=== PATIENT | female | born 1940 | race Caucasian/White ===

== ENCOUNTER 2019-02-12 10:40 | Inpatient (IN) ==
--- NOTE | 2019-02-12 11:37 | Diag Imaging Result Doc PS360 ---
EXAM: TRAUMA SHOULDER LEFT HISTORY: fall/injury TECHNIQUE: Four views COMPARISON: None. FINDINGS: No fracture. No dislocation. Arthritis at the acromioclavicular joint. No separation. IMPRESSION: No acute bony injury. Electronically signed by Max Avery 02/12/2019 11:35 AM
--- NOTE | 2019-02-12 11:37 | Diag Imaging Result Doc PS360 ---
EXAM: XRAY PELVIS W/HIP 2-3VW LT HISTORY: fall/injury TECHNIQUE: Three views COMPARISON: None. FINDINGS: There is a subcapital left femoral neck fracture. Mild compaction and angulation. The femoral head remains in the acetabulum. IMPRESSION: Left femoral neck fracture. Electronically signed by Max Avery 02/12/2019 11:34 AM
[2019-02-12] MEDS ORDERED: NS 1,000 ML IV ONE (12:39)
--- NOTE | 2019-02-12 13:02 | Diag Imaging Result Doc PS360 ---
EXAM: CHEST-PORTABLE HISTORY: fall with hip fracture TECHNIQUE: Single view COMPARISON: None. FINDINGS: The lungs are well expanded. No contusion. No pneumothorax. No pleural effusions or fractures identified. IMPRESSION: No injury Electronically signed by Max Avery 02/12/2019 1:00 PM
[2019-02-12 13:25] LABS: BASO# 0.02 X1000 (0.0-0.2); BASO% 0.2 % (0.0-0.8); EOS# 0.03 X1000 (0.0-0.7); EOS% 0.3 % (0.0-10.0); HEMOGLOBIN 13.7 g/dL (12.0-16.0); IMM GRAN# 0.02 X1000 (0.0-0.04); IMM GRAN% 0.2 % (0.0-0.5); LYMPH# 1.52 X1000 (1.2-3.4); LYMPH% 15.4 % (20.5-51.1); MCH 27.9 PG (27-31); MCHC 32.6 g/dL (33-37); MCV 85.5 FL (81-99); MONO# 0.87 X1000 (0.11-0.59); MONO% 8.8 % (1.7-9.3); MPV 9.3 FL (7.4-10.4); NEUT# 7.39 X1000 (1.4-6.5); NEUT% 75.1 % (42.2-75.2); PLT 177 X1000 (130-400); RBC 4.91 XMIL (4.2-5.4); RDW 13.9 % (11.5-14.5); WBC 9.85 X1000 (4.8-10.8)
[2019-02-12 13:28] LABS: INR 1.11; PROTIME 14.5 Seconds (11.0-16.0)
[2019-02-12 13:29] LABS: PTT 28.1 Seconds (22.3-41.8)
[2019-02-12 13:40] LABS: AGAP 15; ALB/GLOB RATIO 1.8; ALBUMIN 4.4 g/dL (3.5-5.0); ALKALINE PHOSPHATASE 60 U/L (32-104); BUN 15 mg/dL (8-22); CALCIUM 9.6 mg/dL (8.8-10.2); CHLORIDE 101 mmol/L (98-107); COSMO 282; CREATININE 0.6 mg/dL (0.5-0.9); ESTIMATED GFR > 60; GLUCOSE 93 mg/dL (70-104); GOT 20 U/L (10-30); GPT 15 U/L (10-36); POTASSIUM 3.9 mmol/L (3.5-5.1); SODIUM 141 mmol/L (136-145); TCO2 25 mmol/L (25-35); TOTAL PROTEIN 6.8 g/dL (6.3-8.3)
[2019-02-12 14:18] LABS: URINE SOURCE CATH
[2019-02-12 14:20] LABS: BILIRUBIN URINE NEGATIVE (NEGATIVE); BLOOD URINE NEGATIVE (NEGATIVE); COLOR YELLOW; GLUCOSE URINE NEGATIVE (NEGATIVE); KETONE URINE 20 mg/dL (NEGATIVE); LEUKOCYTES URINE NEGATIVE (NEGATIVE); NITRITE URINE NEGATIVE (NEGATIVE); PH URINE 5.5; PROTEIN URINE NEGATIVE (NEGATIVE); SP GRAVITY URINE 1.009; TURBIDITY URINE CLEAR (CLEAR); UR EPITHELIAL CELLS <10 /HPF (<10); URINE BACTERIA NEGATIVE /HPF; URINE RBC <10 /HPF (<10); URINE WBC <10 /HPF (<10); UROBILINOGEN URINE NORMAL (NORMAL)
--- NOTE | 2019-02-12 14:24 | Diag Imaging Result Doc PS360 ---
EXAM: CT HEAD/C-SPINE W/O CONTRAST INDICATION: head injury/pain TECHNIQUE: This exam was performed using automated exposure control, adjustment of mA or kV according to patient size, and/or use of iterative reconstruction technique. COMPARISON: None. FINDINGS: Head: There is no definite acute infarct given the limited sensitivity of CT versus MRI. There is no discrete intracranial mass, mass effect, or intracranial hemorrhage. The surrounding soft tissues are essentially unremarkable. The calvaria is intact. C-spine: There is mild degenerative disc disease at several levels with tiny marginal osteophytes. The central canal appears to be largely patent. Otherwise, there is no discrete fracture, subluxation, or intrinsic osseous lesion. The surrounding soft tissues are essentially unremarkable. IMPRESSION: 1.No evidence of acute intracranial pathology. 2.No evidence of fracture or other definite acute C-spine injury. Electronically signed by Ben Jeter 02/12/2019 2:21 PM
--- NOTE | 2019-02-12 15:01 | PROVIDER DOCUMENTATION ---
This chart was entered by Molly Self Scribe, acting as scribe for Paulino Estrada MD. HPI-Musculoskeletal Pain/Inj - GENERAL Chief Complaint: Hip Injury Stated Complaint: FALL/HIP INJURY Time Seen by Provider: 02/12/19 11:14 Source: patient - HX OF PRESENT ILLNESS-MUSKULOSKELTAL Nature of Presenting Problem: Patient is a 78 year old female who presents with left hip and left shoulder pain. States she fell yesterday after tripping in her kitchen. Denies head injury and LOC. Reports being seen by a THERMAL SPRAY OPERATOR and received xrays and an MRI. States she was informed she had a femur fracture. Quality of Pain: reports: aching Severity in ED: mild Onset/Duration: 24 hours ago Timing: still present Any recent injury?: Yes (fall) Locality of Occurance: Home Similar Symptoms Previously?: Yes Recently seen or treated by another doctor?: Yes - FALL INJURY Location of Pain/Injury: reports: upper extremity (left shoulder), other (left hip) Pain Radiation: reports: no radiation Reason for Fall: reports: tripped Loss of Consciousness: no loss of consciousness - HIP/PELVIS PAIN/INJURY Hip Pain Location: reports: hip (L) Pain Radiation: reports: no radiation Context / Method of Injury: reports: fall - LOWER EXTREMITY PAIN/INJURY Lower Extremities Pain: hip: left Context / Method of Injury: reports: fell - UPPER EXTREMITY PAIN/INJURY Extremities Pain Location: shoulder: left Context / Method of Injury: reports: fell Review of Systems - Adult - REVIEW OF SYSTEMS - ADULT Constitutional: reports: no symptoms reported Eyes: reports: no symptoms reported Ears, Nose, Mouth & Throat: reports: no symptoms reported Cardiovascular: reports: no symptoms reported Respiratory: reports: no symptoms reported Gastrointestinal: reports: no symptoms reported Genitourinary: reports: no symptoms reported Musculoskeletal: reports: see HPI, other (left hip and left shoulder pain). denies: back pain, neck pain Integumentary: reports: no symptoms reported Neurological: reports: no symptoms reported Psychiatric: reports: no symptoms reported Endocrine: reports: no symptoms reported Hematologic/Lymphatic: reports: no symptoms reported Allergic/Immunologic: reports: no symptoms reported All Other Systems: Reviewed and Negative Past History - Adult - PAST MEDICAL HISTORY-ADULT Review of Records: reports: Old Records Reviewed, Nursing Assessment Review, Medications Reviewed, Social history reviewed & non-contributory. Major Childhood Illnesses: reports: denies history Cardiovascular: reports: denies history Respiratory: reports: denies history Gastrointestinal: reports: denies history Obstetrical/Gynecological: reports: denies history Genitourinary: reports: denies history Musculoskeletal: reports: denies history Neurological: reports: denies history Endocrine/Immune: reports: denies history Other Conditions: reports: denies history - PRIOR SURGERIES/PROCEDURES Surgical/Procedure History: reports: reviewed, not pertinent - IMMUNIZATION STATUS Childhood Immunizations: See Nurse Assessment Flu Vaccine: See Nurse Assessment - FAMILY HISTORY Family History: reviewed, not pertinent - SOCIAL HISTORY Smoking: denies Substance Use: denies Living Situation: family Physical Exam-Injury Related - Physical Exam-Injury Related Initial Vital Signs Reviewed: Yes General Appearance: alert, no apparent distress. negative: lethargic Head, Ears, Nose, Mouth & Throat: normocephalic/atraumatic, moist mucous membranes. negative: angioedema Neck: non-tender, full range of motion, normal inspection. negative: C-spine tenderness Respiratory: chest non-tender, lungs clear, normal breath sounds. negative: rhonchi, wheezing Cardiovascular: regular rate, rhythm. negative: tachycardia, systolic murmur Abdominal Exam: normal bowel sounds, non tender, soft. negative: rigid Extremity: tenderness (left shoulder.), other (decrease ROM to left hip.). negative: pedal edema Integumentary: normal color, warm/dry. negative: abrasion, laceration Neurologic: grossly normal. negative: aphasia, facial droop Psych/Mental Status: normal mood/affect, oriented x 3. negative: anxious Progress - PLAN OF CARE/RESULTS Progress/Plan/Lab Results: Vital Signs - 8 hr 02/12/19 10:45 Temperature 98.4 F Pulse Rate 66 Respiratory Rate 18 Blood Pressure 136/69 O2 Sat by Pulse Oximetry 98 Laboratory Results - last 24 hr 02/12/19 02/12/19 02/12/19 13:07 13:07 13:07 WBC 9.85 RBC 4.91 Hgb 13.7 Hct 42.0 MCV 85.5 MCH 27.9 MCHC 32.6 L RDW Std Deviation 13.9 Plt Count 177 MPV 9.3 Immature Gran % (Auto) 0.2 Neut % (Auto) 75.1 Lymph % (Auto) 15.4 L Noble % (Auto) 8.8 Eos % (Auto) 0.3 Baso % (Auto) 0.2 Immature Gran # (Auto) 0.02 Neut # (Auto) 7.39 H Lymph # (Auto) 1.52 Noble # (Auto) 0.87 H Eos # (Auto) 0.03 Baso # (Auto) 0.02 PT INR PTT (Actin FS) Sodium 141 Potassium 3.9 Chloride 101 Carbon Dioxide 25 Anion Gap 15 BUN 15 Creatinine 0.6 Estimated GFR/1.73 m2 > 60 BUN/Creatinine Ratio 25 Glucose 93 Calculated Osmolality 282 Calcium 9.6 Total Bilirubin 0.60 AST 20 ALT 15 Alkaline Phosphatase 60 Troponin T Yhd-W-Wgssljkjyws Pept 258 Total Protein 6.8 Albumin 4.4 Globulin 2.4 Albumin/Globulin Ratio 1.8 Urine Source Urine Color Urine Turbidity Urine pH Ur Specific [place] Urine Protein Ur Glucose (Stick) Ur Ketones (Stick) Urine Blood Urine Nitrite Urine Bilirubin Urobilinogen Dipstick Urine Leukocytes Urine WBC (Auto) Urine RBC (Auto) U Epithel Cells (Auto) Urine Bacteria (Auto) Blood Type Antibody Screen 02/12/19 02/12/19 02/12/19 13:07 13:07 13:07 WBC RBC Hgb Hct MCV MCH MCHC RDW Std Deviation Plt Count MPV Immature Gran % (Auto) Neut % (Auto) Lymph % (Auto) Noble % (Auto) Eos % (Auto) Baso % (Auto) Immature Gran # (Auto) Neut # (Auto) Lymph # (Auto) Noble # (Auto) Eos # (Auto) Baso # (Auto) PT 14.5 INR 1.11 PTT (Actin FS) 28.1 Sodium Potassium Chloride Carbon Dioxide Anion Gap BUN Creatinine Estimated GFR/1.73 m2 BUN/Creatinine Ratio Glucose Calculated Osmolality Calcium Total Bilirubin AST ALT Alkaline Phosphatase Troponin T < 0.010 Ths-P-Zwlgqtonxns Pept Total Protein Albumin Globulin Albumin/Globulin Ratio Urine Source Urine Color Urine Turbidity Urine pH Ur Specific [place] Urine Protein Ur Glucose (Stick) Ur Ketones (Stick) Urine Blood Urine Nitrite Urine Bilirubin Urobilinogen Dipstick Urine Leukocytes Urine WBC (Auto) Urine RBC (Auto) U Epithel Cells (Auto) Urine Bacteria (Auto) Blood Type A POSITIVE Antibody Screen NEGATIVE 02/12/19 14:13 WBC RBC Hgb Hct MCV MCH MCHC RDW Std Deviation Plt Count MPV Immature Gran % (Auto) Neut % (Auto) Lymph % (Auto) Noble % (Auto) Eos % (Auto) Baso % (Auto) Immature Gran # (Auto) Neut # (Auto) Lymph # (Auto) Noble # (Auto) Eos # (Auto) Baso # (Auto) PT INR PTT (Actin FS) Sodium Potassium Chloride Carbon Dioxide Anion Gap BUN Creatinine Estimated GFR/1.73 m2 BUN/Creatinine Ratio Glucose Calculated Osmolality Calcium Total Bilirubin AST ALT Alkaline Phosphatase Troponin T Lyv-K-Pfbygrlxvgz Pept Total Protein Albumin Globulin Albumin/Globulin Ratio Urine Source CATH Urine Color YELLOW Urine Turbidity CLEAR Urine pH 5.5 Ur Specific [place] 1.009 Urine Protein NEGATIVE Ur Glucose (Stick) NEGATIVE Ur Ketones (Stick) 20 A Urine Blood NEGATIVE Urine Nitrite NEGATIVE Urine Bilirubin NEGATIVE Urobilinogen Dipstick NORMAL Urine Leukocytes NEGATIVE Urine WBC (Auto) <10 Urine RBC (Auto) <10 U Epithel Cells (Auto) <10 Urine Bacteria (Auto) NEGATIVE Blood Type Antibody Screen Orders Category Date Time Status Aguirre Cath Insertion ORDERED Care 02/12/19 12:38 Active Saline Loc NOW Care 02/12/19 12:38 Active CHEST-PORTABLE [RAD] Stat Exams 02/12/19 12:[address] HEAD/C-SPINE W/O CONTRAST [CT] Stat Exams 02/12/19 12:36 Completed TRAUMA SHOULDER LEFT [RAD] Stat Exams 02/12/19 10:49 Completed XRAY PELVIS W/HIP 2-3VW LT [RAD] Stat Exams 02/12/19 10:49 Completed CBC WITH ELECTRONIC DIFF [HEME] Stat Lab 02/12/19 13:07 Completed COMPREHENSIVE METABOLIC PANEL [CHEM] Stat Lab 02/12/19 13:07 Completed PRO B-NATRIURETIC PEPTIDE Stat Lab 02/12/19 13:07 Completed PROTIME WITH INR [COAG] Stat Lab 02/12/19 13:07 Completed PTT [COAG] Stat Lab 02/12/19 13:07 Completed TROPONIN T Stat Lab 02/12/19 13:07 Completed TYPE & SCREEN [BBK] Stat Lab 02/12/19 13:07 Completed URINALYSIS W/POSS RFLX CULT [URINALYSIS] Stat Lab 02/12/19 14:13 Completed 0.9% Sodium Chloride Inj [Ns] 1,000 ml Med 02/12/19 12:39 Active IV 75 mls/hr EKG [EKG] Stat Ther 02/12/19 12:38 Ordered Transfer/Admit Order [TRANSFER] Routine Transfer 02/12/19 14:46 Ordered Result Diagrams: 02/12/19 13:07 02/12/19 13:07 - REASSESSMENT Reassessment #1 Time Reassessed: 14:59 Status: unchanged (Patient does not want pain meds at this time.) - XRAY 1 XRAY Study: Chest Impression: See EMR Report ( EXAM: CHEST-PORTABLE HISTORY: fall with hip fracture TECHNIQUE: Single view COMPARISON: None. FINDINGS: The lungs are well expanded. No contusion. No pneumothorax. No pleural effusions or fractures identified. IMPRESSION: No injury Electronically signed by Max Avery 02/12/2019 1:00 PM 02/12/19 1300 Interpreting Physician: Max Avery MD Dictated Date/Time: 02/12/19 1259 cc: Paulino Estrada MD; None,PCP) 2 XRAY: Left XRAY Study: Shoulder Impression: See EMR Report ( EXAM: TRAUMA SHOULDER LEFT HISTORY: fall/injury TECHNIQUE: Four views COMPARISON: None. FINDINGS: No fracture. No dislocation. Arthritis at the acromioclavicular joint. No separation. IMPRESSION: No acute bony injury. Electronically signed by Max Avery 02/12/2019 11:35 AM 02/12/19 1135 Interpreting Physician: Max Avery MD Dictated Date/Time: 02/12/19 1134 cc: Paulino Estrada MD; None,PCP) 3 XRAY: Left XRAY Study: Pelvis, Hip Impression: See EMR Report (EXAM: XRAY PELVIS W/HIP 2-3VW LT HISTORY: fall/i njury TECHNIQUE: Three views COMPARISON: None. FINDINGS: There is a subcapital left femoral neck fracture. Mild compaction and angulation. The femoral head remains in the acetabulum. IMPRESSION: Left femoral neck fracture. Electronically signed by Max Avery 02/12/2019 11:34 AM 02/19 1134 Interpreting Physician: Max Avery MD Dictated Date/Time: 02/12/19 1133 cc: Paulino Estrada MD; None,PCP) - CONSULTS/PCP/HOSPITALIST Notification #1 *Consult/PCP/Hospitalist*: Dr. Diaz paged at [phone], [phone] #2 Consult: SONDRA Renee for Hospitalist paged at [phone] Time Discussed: 14:42 Reason/Comments: Dr. Estrada consulted with Thelma about patient Consult Disposition: Will see in ED, Admit Departure - Departure Date of Disposition Decision: 02/12/19 Time of Disposition Decision: 14:43 DIAGNOSIS: Left anterior shoulder pain Closed subcapital fracture of left femur Qualifiers: Encounter type: initial encounter Qualified Code(s): S72.012A - Unspecified intracapsular fracture of left femur, initial encounter for closed fracture Fall as cause of accidental injury at home as place of occurrence Qualifiers: Encounter type: initial encounter Qualified Code(s): W19.XXXA - Unspecified fall, initial encounter; Y92.009 - Unspecified place in unspecified non- institutional (private) residence as the place of occurrence of the external cause Disposition: ADMITTED INPATIENT 09 Certified Medical Emergency: Emergent Condition: Stable Referrals and Follow-Ups: None,PCP [Primary Care Provider] - - Critical Care Note This patient required my direct & personal management of CC.: No Attestation - Physician/ ELIZABETH Attestation Patient care was provided by Advanced Practice Provider:: No The physician spent face to face time with patient:: Yes Advanced Practice Provider documentation review:: Supervising physician onsite and consulted in the evaluation and care of this patient. The physician did have a face to face encounter with the patient. This chart was documented by the indicated scribe, (Molly Self Scribe) and accurately reflects the services I performed and decisions made by me, Paulino Estrada MD, as attested by the provider's signature.
--- NOTE | 2019-02-12 15:54 | ED EKG INTERP ---
EKG Interpretation - EKG Time of EKG reading by physician:: 15:53 EKG Read and Signed by:: Paulino Estrada EKG Interpretation (*Must complete 3 of following elements*): Abnormal Rate: 65 Rhythm: nsr [place]: normal QRS: poor R wave progression IN Interval: prolonged ST Wave: non-specific ST changes Attestation - Physician/ ELIZABETH Attestation Patient care was provided by Advanced Practice Provider:: No The physician spent face to face time with patient:: Yes Advanced Practice Provider documentation review:: Supervising physician onsite and consulted in the evaluation and care of this patient. The physician did have a face to face encounter with the patient.
--- NOTE | 2019-02-12 16:03 | EKG Report ---
Test Performed on : 02/12/2019 3:53:34 PM Test Reason : fall Blood Pressure : / mmHG Vent. Rate : 065 BPM Atrial Rate : 065 BPM P-R Int : 190 ms QRS Dur : 080 ms QT Int : 424 ms P-R-T Axes : 074 -01 041 degrees QTc Int : 440 ms Normal sinus rhythm. Nonspecific ST abnormality Abnormal ECG No previous ECGs available Unconfirmed Result
[2019-02-12] MEDS ORDERED: DEMEROL IV PRN (16:42)
[2019-02-12] MEDS ORDERED: TYLENOL PO PRN (16:42)
[2019-02-12] MEDS: NS 1,000 ML IV SCH (17:21)
--- NOTE | 2019-02-12 21:44 | HISTORY AND PHYSICAL ---
ADDENDUM: I have seen and examined Ms. Grove today. Ms. Grove is a 78-year-old female with a history of hypertension, stable coronary artery disease on Relaxin, also Alzheimer's on Aricept, who came to the emergency room after she was referred to come and do some testing. Apparently, she fell yesterday in the morning, tripped and fell down sustaining some injury to the left hip. She went to a walk-in clinic this morning and was advised to come to the ER. Upon presenting to the ER, she was evaluated including an x-ray of the hips, which revealed a left femoral neck fracture. Ms. Grove is being admitted. Orthopedics has been consulted for surgical intervention on the left femoral neck fracture. Of note, Ms. Grove has coronary artery disease which is currently stable and she has no symptoms. She has no symptoms. She denies any chest pain. She denies any shortness of breath. She denies any chronic renal failure or chronic liver failure. She does have diabetes mellitus, which is controlled on diet and she does not take any anticoagulants. Ms. Grove is going for a nonvascular orthopedic intervention. She is a moderate risk patient for a moderate nonvascular orthopedic procedure. The procedure is urgent to preserve functionality. We recommend surgery to continue. LABORATORY DATA: Her EKG shows a normal sinus rhythm with a rate of 65, no acute T-waves or ST- segment abnormality. MEDICATIONS: Ms. Grove will be able to take her home medications tonight, but we will hold them tomorrow morning, especially the lisinopril until after the surgery. Please refer to the details of the history and physical that has been dictated by the SAND CASTER in the chart. cc: David Lewis MD
--- NOTE | 2019-02-12 21:53 | HISTORY AND PHYSICAL ---
PRIMARY CARE PROVIDER: Trevin John. CHIEF COMPLAINT: Left hip pain. HISTORY OF PRESENT ILLNESS: Ms. Grove is a 78-year-old female, with a past medical history of hypertension, dementia, seasonal allergies, hypoglycemia, hyperlipidemia, heart palpitations, who reported that she fell yesterday, tripped over a case of water on the floor. Continued to have some hip pain. She went to her primary care doctor. She was sent to have an MRI of her hip. They called her later in the afternoon and told her to go to the emergency room because she had a fractured hip. However, she waited until this a.m. to come to the ED. Imaging here revealed a left femoral neck fracture. Shoulder, head, and cervical spine CT did not show anything acute. All other laboratory data is essentially unremarkable. Dr. Diaz has been consulted with Orthopedics. He will do her surgery in the a.m. She will be made n.p.o. after midnight. PAST MEDICAL HISTORY: Per HPI. PAST SURGICAL HISTORY: 1. . 2. Hysterectomy. 3. Tubal. 4. Appendectomy. 5. Hernia with mesh repair. 6. Hiatal hernia repair. ALLERGIES: Morphine, natural rubber. MEDICATIONS: Home medications are being compiled. FAMILY HISTORY: Reviewed and noncontributory. SOCIAL HISTORY: She is . Daughter at bedside. No tobacco, alcohol or illicit drug use. REVIEW OF SYSTEMS: Twelve-point review of systems completed and negative except for those mentioned in HPI. PHYSICAL EXAMINATION: VITAL SIGNS: Temperature is 98.4 degrees, heart rate 66, respirations 18, blood pressure 136/69, O2 98% on room air. GENERAL: Ms. Grove is a feisty 78-year-old female who is sitting up in the bed in no acute distress. HEENT: Atraumatic, normocephalic. PERRL. NECK: Supple. Trachea midline. CARDIOVASCULAR: S1, S2 appreciated. No murmurs, gallops, or rubs noted. RESPIRATORY: Lung sounds clear bilaterally. GI: Soft, nontender, nondistended. Positive bowel sounds 4 quadrants. EXTREMITIES: Lower extremities are negative for edema. No signs of clubbing or cyanosis. NEUROLOGIC: No focal deficits. DIAGNOSTIC DATA: Hip and pelvis x-ray shows a left femoral neck fracture. LABORATORY DATA: White count 9, hemoglobin and hematocrit 13 and 42, platelet count 177,000. Sodium 141, potassium 3.9, BUN 15, creatinine 0.6, blood glucose is 93. Urinalysis is negative. ASSESSMENT AND PLAN: 1. Left femoral neck fracture, status post fall. Patient will undergo surgery with Dr. Diaz in the a.m. She will be n.p.o. after midnight. We will continue with pain regimen. 2. Hypertension. Continue p.o. medications. 3. Dementia. Continue Aricept. 4. Hyperlipidemia. 5. Hypoglycemia reported. We will continue watching patterned blood sugars. 6. Further recommendations to follow physician evaluation, laboratory and diagnostic data. Dictated by SONDRA Mars for David Lewis MD cc: MD Leif Vides MD
[2019-02-13] MEDS ORDERED: KEFZOL 2 GM/D5W 2 GM/50 ML IVPB IV ONE ×2 (06:00→11:26)
[2019-02-13] MEDS: NS 1,000 ML IV SCH ×2 (06:10→15:01)
[2019-02-13 06:49] LABS: BASO# 0.01 X1000 (0.0-0.2); BASO% 0.2 % (0.0-0.8); EOS# 0.13 X1000 (0.0-0.7); EOS% 2.4 % (0.0-10.0); HEMATOCRIT 36.6 % (37.0-47.0); HEMOGLOBIN 11.8 g/dL (12.0-16.0); LYMPH# 1.47 X1000 (1.2-3.4); LYMPH% 27.2 % (20.5-51.1); MCH 27.9 PG (27-31); MCHC 32.2 g/dL (33-37); MCV 86.5 FL (81-99); MONO# 0.72 X1000 (0.11-0.59); MONO% 13.3 % (1.7-9.3); MPV 9.4 FL (7.4-10.4); NEUT# 3.07 X1000 (1.4-6.5); NEUT% 56.9 % (42.2-75.2); PLT 167 X1000 (130-400); RBC 4.23 XMIL (4.2-5.4); RDW 13.6 % (11.5-14.5)
[2019-02-13 07:19] LABS: AGAP 10; ALB/GLOB RATIO 1.5; ALBUMIN 3.6 g/dL (3.5-5.0); ALKALINE PHOSPHATASE 48 U/L (32-104); BUN 11 mg/dL (8-22); CALCIUM 8.8 mg/dL (8.8-10.2); CHLORIDE 105 mmol/L (98-107); COSMO 280; CREATININE 0.6 mg/dL (0.5-0.9); ESTIMATED GFR > 60; GLUCOSE 81 mg/dL (70-104); GOT 13 U/L (10-30); GPT 11 U/L (10-36); POTASSIUM 3.5 mmol/L (3.5-5.1); SODIUM 141 mmol/L (136-145); TCO2 26 mmol/L (25-35); TOTAL BILIRUBIN 0.58 mg/dL (0.20-1.00)
--- NOTE | 2019-02-13 08:01 | ORTHOPAEDICS CONSULTATION ---
DATE: 02/12/2019 Consult from [facility]. REASON FOR CONSULTATION: Left femoral neck fracture. PAST MEDICAL HISTORY: 1. Diabetes. 2. Hypertension. 3. Mild dementia. PAST SURGICAL HISTORY: 1. section. 2. Tubal ligation. 3. Hysterectomy. 4. Cholecystectomy. 5. Hiatal hernia surgery. 6. Bilateral bunionectomies. MEDICATIONS: 1. Lisinopril. 2. Singulair. 3. Ranolazine. 4. Donepezil. 5. Simvastatin. ALLERGIES: Patient reports an allergy to latex and morphine. SOCIAL HISTORY: Patient lives in [place] at home with her . She is a community ambulator with no assistive device. She denies any prior pain in the hip before the fall. She denies any tobacco, alcohol, drug use. She still drives occasionally. FAMILY HISTORY: Noncontributory. Patient has no history of blood clots that she is aware of in herself or her family. REVIEW OF SYSTEMS: A 10-point review of systems is negative other than what is listed in history of present illness. CHIEF COMPLAINT: Left hip pain. HISTORY OF PRESENT ILLNESS: Ms. Grove is a 78-year-old lady who presented to the ER today after obtaining x-rays at her primary care physician's office demonstrating left femoral neck fracture. Patient states she has a same-level fall at home a couple of days prior to presentation. She has had significant difficulty ambulating since that time. X-rays demonstrated a femoral neck fracture and Orthopedic Surgery was thus consulted. The patient denies hitting her head or any loss of consciousness. She reports falling on her left shoulder as well, which she says is feeling better now. She has no other complaints. She denies any prior hip pain before this fall. PHYSICAL EXAMINATION: General: Ms. Grove is a 78-year-old female who appears well nourished and well developed, no acute distress. She is awake, alert, and oriented x3. She is very polite and cooperative during the examination. Vital Signs: Temperature 97.8 degrees Celsius, heart rate 62, blood pressure 139/68, respiratory rate 20, O2 sats 98%. HEENT: Normocephalic and atraumatic. Respiratory: Nonlabored breathing. Cardiovascular: Regular rate and rhythm. Extremities: Examination of left lower extremity shows skin to be intact. Patient has some ecchymosis over the lateral aspect of her hip. She is tender to palpation around her hip joint, both anteriorly and laterally. She is nontender at her knee, leg, ankle and foot. Thigh and calf were soft and compressible. Motor is intact in EHL, tibialis anterior and gastrocsoleus complex. Sensation intact to light touch L3-S1. Dorsalis pedis pulse palpable and equal bilaterally. IMAGING: AP pelvis and lateral of the left hip were obtained and reviewed, demonstrating a subcapital femoral neck fracture with minimal displacement. She does appear to have some comminution of the fracture site superiorly. AP lateral and scapular Y-views of the left shoulder were obtained demonstrating no fracture or dislocation. LABORATORY DATA: White count is 10, hemoglobin 14, hematocrit 42, platelets 177,000. INR is 1.1. ASSESSMENT: A 78-year-old female with left subcapital femoral neck fracture. PLAN: 1. A long discussion was had with the patient regarding diagnosis and treatment options. Given her fracture pattern and the comminution of the superior femoral neck, I think she would benefit from left hip hemiarthroplasty. Risks, benefits, and alternative therapies were discussed with patient regarding surgery. Risks of surgery include, but not limited to risks of bleeding, infection, damage to nerves and vessels around the area, continued pain following surgery, dislocation and need for revision surgery. There is also risk of anesthesia including blood clot, stroke, heart attack, even . Patient understands these risks. All questions were answered. Informed consent was obtained. 2. The patient is to remain nonweightbearing left lower extremity. 3. The patient is n.p.o. at midnight tonight. We will plan on left hip hemiarthroplasty to be done through an anterior approach tomorrow morning when OR space is available. 4. Appreciate hospitalist recommendations. 5. Ice left lower extremity as needed for pain. 6. Hold chemical deep venous thrombosis prophylaxis until postoperative.
[2019-02-13] MEDS ORDERED: D50W SYRINGE IV ONE (08:49)
--- NOTE | 2019-02-13 09:08 | ORTHOPAEDICS CONSULTATION ---
DATE: 02/12/2019 CHIEF COMPLAINT: Left hip pain after fall yesterday. HISTORY OF PRESENT ILLNESS: The patient reports she tripped in her kitchen when she caught her foot on something and landed on her left hip. She denies LOC. She states it hurts to bear weight. PAST MEDICAL HISTORY: The patient reports hypertension and hypoglycemia. She also reports she has episodes of bradycardia. REVIEW OF SYSTEMS: A 12-point review of systems was performed. Pertinent positives listed in the HPI. ALLERGIES: The patient reports she is allergic to latex. SOCIAL HISTORY: The patient denies alcohol or tobacco use, or any type of drug use. PHYSICAL EXAMINATION: Vital signs: Temperature 98.4 degrees, pulse rate 66, respiratory rate 18, blood pressure 136/69, oxygen saturation 98% on room air. General: The patient is awake, alert, sitting in the bed comfortably in no distress.HEENT: Head is atraumatic, normocephalic. Eyes: Equal, round, reactive. Neck is supple. Respiratory: There is equal chest expansion, rise and fall. Abdomen soft, nontender. Left lower extremity exam: Left lower extremity is slightly shorter and internally rotated. There is ecchymosis and swelling to the left lateral hip. There is tenderness to the anterior joint line of the left hip. There is decreased range of motion as well to the left hip. There is good sensation. There are good pedal pulses. LABORATORY DATA: White blood cells 9.85, hemoglobin 13.7, hematocrit 42.0, platelets 177,000. INR is 1.11. Sodium 141, potassium 3.9, chloride 101, BUN 15, creatinine 0.6, glucose 93. ProBNP is 258. Urine is positive for ketones. MEDICATIONS: Lisinopril 2.5 mg p.o. at bedtime; Singulair 10 mg daily; Ranexa 1000 mg daily; Aricept 23 mg daily; simvastatin 20 mg daily. DIAGNOSTIC DATA: X-rays of the hip were performed and showed a left femoral neck fracture. X-rays of the shoulder and chest were performed and showed no acute abnormality. CT of the C-spine was normal, with no acute intracranial injury. ASSESSMENT: Left femoral neck fracture. PLAN: We plan to take Ms. Grove to the operating room sometime in the morning and perform an anterior bipolar hip replacement. She agrees to the surgery. The risks and benefits of surgery were gone over with the patient. All questions were answered. We will check on her tomorrow to see how she is doing. Dictated by SONDRA Martínez for Arthur Diaz MD cc: SONDRA Martínez
[2019-02-13] MEDS: ZOFRAN IV PRN ×4 (10:07→20:12)
[2019-02-13] MEDS ORDERED: DIPRIVAN 1% ONE ×2 (10:20→12:16)
[2019-02-13] MEDS ORDERED: NORCURON ONE (10:25)
[2019-02-13] MEDS ORDERED: STERILE WATER INJ. ONE (10:25)
[2019-02-13] MEDS ORDERED: MARCAINE 0.25% PF ONE (11:19)
[2019-02-13] MEDS ORDERED: TORADOL ONE (11:19)
[2019-02-13] MEDS ORDERED: DURAMORPH ONE (11:19)
[2019-02-13] MEDS ORDERED: SODIUM CHLORIDE 0.9% ONE (11:20)
[2019-02-13] MEDS ORDERED: CYKLOKAPRON 1,000 MG/NS 1,000 MG/100 ML IVPB ONE (11:20)
[2019-02-13] MEDS ORDERED: EXPAREL 1.3% ONE (11:21)
[2019-02-13] MEDS ORDERED: KEFZOL 1 GM/D5W 1 GM/50 ML IVPB ONE (11:29)
[2019-02-13] MEDS ORDERED: FENTANYL ONE (11:34)
[2019-02-13] MEDS ORDERED: EPHEDRINE ONE (13:13)
[2019-02-13] MEDS ORDERED: ROBINUL ONE (13:13)
[2019-02-13] MEDS ORDERED: SODIUM CHLORIDE 0.9% 10 ML ONE (13:13)
[2019-02-13] MEDS ORDERED: OXY IR PO PRN ×2 (13:25)
[2019-02-13] MEDS ORDERED: VANCOMYCIN 1 GM/NS 1 GM/250 ML IVPB IV ONE (13:25)
[2019-02-13] MEDS ORDERED: ZOFRAN PO PRN (13:25)
[2019-02-13] MEDS ORDERED: MILK OF MAGNESIA PO PRN (13:25)
[2019-02-13] MEDS ORDERED: AMBIEN PO PRN (13:25)
[2019-02-13] MEDS ORDERED: NS 1,000 ML IV SCH (13:30)
--- NOTE | 2019-02-13 13:59 | Diag Imaging Result Doc PS360 ---
EXAM: XRAY HIP UNILATERAL LT 02/13/2019 HISTORY: Post-op TECHNIQUE: Left hip portable two views COMMENT: There is a bipolar hip prosthesis. There is no evidence of acute fracture or dislocation. IMPRESSION: Postsurgical changes. Electronically signed by Abdi Julian 02/13/2019 1:57 PM
[2019-02-13] MEDS ORDERED: ZOFRAN IV ONE (14:52)
[2019-02-13] MEDS: ULTRAM PO SCH ×2 (17:20→18:18)
[2019-02-13] MEDS: COLACE PO SCH (20:36)
[2019-02-13] MEDS: CELEBREX PO SCH (20:37)
[2019-02-13] MEDS: LYRICA PO SCH (20:37)
[2019-02-13] MEDS: KEFZOL 1 GM/D5W 1 GM/50 ML IVPB IV SCH (20:40)
--- NOTE | 2019-02-13 21:45 | PROGRESS NOTE ---
DATE: 02/13/2019 SUBJECTIVE: This morning, Ms. Grove refers to be doing well. She was awaiting for hip surgery today. OBJECTIVE: Vital signs: Blood pressure 129/59, pulse of 71, respirations 16, temperature is 97.3 degrees. General: Ms. Grove is a 78-year-old, elderly female. She is in bed in no distress. Mucosa is pink and moist. Anicteric, acyanotic. Neck: Supple. Chest: Good air entry bilaterally. There are no crepitations. No rhonchi. Cardiovascular: Regular rate and rhythm. There are no murmurs. No rubs. No gallops. Gastrointestinal: Abdomen is soft, nontender. Bowel sounds are present. Extremities: No pedal edema. The patient has pain mobilizing the left hip. central nervous system: Patient is awake, alert, and oriented. LABORATORY DATA: The patient's laboratory data has been reviewed. CBC shows mild normocytic anemia. Chemistry is completely within normal range. ASSESSMENT/PLAN: 1. Status post mechanical fall resulting in a left femoral neck fracture. Patient is pending an orthopedic intervention today. 2. Hypertension. 3. Dementia. 4. Diabetes mellitus. Patient controls on diet. We will re-evaluate Ms. Grove after her surgery. cc: David Lewis MD
[2019-02-14] MEDS: KEFZOL 1 GM/D5W 1 GM/50 ML IVPB IV SCH (00:30)
[2019-02-14] MEDS: ULTRAM PO SCH ×2 (00:43→13:23)
[2019-02-14] MEDS: PERIDEX MT SCH ×3 (00:44→20:36)
--- NOTE | 2019-02-14 05:47 | OPERATIVE NOTE ---
PROCEDURE DATE: 02/13/2019 SERVICE: Orthopedic surgery. PREOPERATIVE DIAGNOSIS: Left subcapital femoral neck fracture. POSTOPERATIVE DIAGNOSIS: Left subcapital femoral neck fracture. PROCEDURE: Left hip hemiarthroplasty. SURGEON: Arthur Diaz MD. TRAFFIC SURVEY TECHNICIAN: 1. Sancho Tipton, whose presence was needed for retraction, placement of implants. 2. Kiya Ramos. ANESTHESIA: Spinal anesthetic. COMPLICATIONS: None. SPECIMENS: None. DRAINS: None. BLOOD LOSS: 150 mL. IMPLANTS: Asha total hip arthroplasty System was used with a Avenir standard H[place] coated stem size 3 with a 28 mm femoral head, +0 neck and a multipolar bipolar cup with a 44 mm bipolar shell. INDICATIONS FOR PROCEDURE: Ms Grove is a 78-year-old lady who sustained a same-level fall at home onto her left hip. She attempted to ambulate on the hip following this and was unable to, and thus presented to her primary care doctor, who ordered x-rays and then sent her to the ER once the femoral neck was identified. The patient denies any pain in the hip prior to surgery. She is a community ambulator without assistive device. Given her findings, the decision was made to proceed with left hip hemiarthroplasty in order to allow her to get back mobilizing. Risks, benefits, alternative therapies were discussed with patient regarding surgery. Risks of surgery include, but not limited to, risks of bleeding, infection, damage to nerves and vessels around the area, continued pain following surgery, dislocation, need for revision surgery. There is also risk of anesthesia, including blood clot, stroke, heart attack, even . Patient understands these risks. All questions were answered. Informed consent was obtained. PROCEDURE IN DETAIL: Ms. Grove was identified by wristband and greeted in preop holding area on 02/13/2019. Her left lower extremity, which was the operative site, was marked with indelible ink per [facility] sign and site protocol. Following this, the patient was transferred back to the operating room for surgery. Upon entering the OR, spinal anesthetic was then administered. She was then transferred in supine position on to the [place] table. All bony prominences were well padded. Her feet were placed into a well-padded boot holders and attached to the table. At this time, the left lower extremity was then prepped and draped in routine sterile fashion. Formal time-out was performed confirming correct patient, procedure, operative site, operative side, administration of preop antibiotics. Everyone was in agreement. Patient received 2 g Ancef prior to incision. A 10 blade knife was used to make standard 10 cm incision just distal and lateral to the ASIS. Knife was used to dissect through skin. Bovie cautery was then used to dissect through subcutaneous tissue, obtaining hemostasis on the way down all the way to tensor fascia. Once the tensor fascia muscle belly was identified, a knife was used to make a longitudinal split, followed by Rosas scissors to open the tensor fascia. At this time, the tensor fascia muscle belly was teased from the anterior leaflet of the fascia until we fell into the interval between sartorius. Blunt cobra retractor was then placed superiorly in the saddle of the femoral neck. We then used hemostats and retractors to spread through the deep interval, identifying the ascending circumflex vessels. These were then cauterized in routine fashion. Once this was done, interval was then split and a 2nd cover was placed around the inferior neck. We then used a Bovie to tease all pericapsular fat from the capsule heading up to the acetabulum. Esquivel was used to elevate rectus off the capsule and a sharp Hohmann was then placed along the anterior superior lip of the acetabulum. At this time, we had excellent visualization of the capsule. Bovie was used to make standard T capsulotomy down the center of the femoral neck to the intertrochanteric line. Leaflets of the capsule were then tagged with suture for closure at the end of the case. Retractors were then placed on the intracapsular allowing excellent visualization of the femoral neck. At this time, a sagittal saw was used to make our femoral neck cut. A corkscrew was then used to remove the femoral head in routine fashion. The acetabulum was inspected and found to have good articular cartilage circumferentially. Labrum was intact. Once this was done, we then turned our attention to femoral release. The femur was externally rotated and we began releasing the interval between capsule and adductor muscles. Once the capsule was released off the medial side of the greater trochanter, we then placed a 2 prong femoral retractor around the back of the greater trochanter. A bone hook was placed in the femoral canal in the leg. The traction was released from the leg. Leg was then extended and adducted and the femoral neck was pulled up into the wound for access and broaching. Rongeur was then used to remove the remaining lateral femoral neck. Cookie cutter was then used to enter the canal followed by the rat-tail canal finer. At this time, we then began with sequential broaching of the canal starting with the chili pepper entry broach working our way up to a size 3. We had excellent fit with a size 3. We then trialed a standard neck with a +0 head. Prior to broaching our canal, the [place] femoral head was measured and found to be 44 mm. We then trialed the 44 mm head, which was found to have good suction fit in the acetabulum. Once we placed our standard neck and 44 mm trial head, the hip was then carefully reduced. The hip was taken through range of motion and placed in positions of vulnerability for dislocation and found to be stable in all positions. X-ray was brought in confirming intramedullary placement of the trial as well as good fit of the stem. Leg lengths were measured and found to be equal as well as offset. We thus opened the final femoral implants. At this time, the hip was then carefully dislocated. The trial components were removed. The femoral canal as well as acetabulum was copiously irrigated with normal saline. We then proceeded with implantation of a size 3 standard Avenir stem, which had excellent fit. Calcar was inspected and found to be free of any cracks. The bipolar head was then assembled on the back table and impacted in place. Our deep by injection cocktail was then injected around the posterior capsule and anterior capsule. We then reduced our femoral head. Then, 200 mL of 0.35% Betadine solution was then poured into the wound and allowed to sit for 3 minutes. X-ray was then brought in, taken final x-rays of AP pelvis, confirming equal leg lengths, followed by AP and lateral of the hip, confirming intramedullary placement and good fit and fill of the stem. Once the Betadine solution set for 3 minutes, the hip was then copiously irrigated with normal saline. The remainder of our deep injection cocktail was then injected around sartorius, tensor fascia, vastus lateralis and rectus muscles. We then injected the skin with subcutaneous Exparel cocktail. At this time, we proceeded with closure of the hip capsule using #1 Vicryl suture. The 0 Vicryl suture was then used for closure of our tensor fascia in running locking fashion, 2-0 Vicryl suture was then used for subcutaneous tissue closure, followed by 3-0 Monocryl for skin closure. Dermabond Prineo dressing was then placed on the skin. Wound was then dressed with Telfa island dressing. At this time, patient was then transferred over hospital stretcher, taken to recovery in stable condition. There were no acute complications of the procedure. All sponge and sharp counts were correct at conclusion of procedure.
[2019-02-14 07:19] LABS: HEMATOCRIT 30.1 % (37.0-47.0); HEMOGLOBIN 9.7 g/dL (12.0-16.0)
[2019-02-14 07:56] LABS: AGAP 13; BUN 9 mg/dL (8-22); CALCIUM 7.6 mg/dL (8.8-10.2); CHLORIDE 104 mmol/L (98-107); COSMO 278; CREATININE 0.6 mg/dL (0.5-0.9); ESTIMATED GFR > 60; GLUCOSE 100 mg/dL (70-104); POTASSIUM 3.6 mmol/L (3.5-5.1); SODIUM 140 mmol/L (136-145); TCO2 23 mmol/L (25-35)
[2019-02-14] MEDS: LOVENOX SUBQ SCH (07:59)
[2019-02-14] MEDS ORDERED: KEFZOL 1 GM/D5W 1 GM/50 ML IVPB IV SCH (08:00)
--- NOTE | 2019-02-14 08:46 | ORTHOPAEDICS PROGRESS NOTE ---
DATE: 02/13/2019 SUBJECTIVE: No acute events. Patient is doing well. She just rolled back up to the room from surgery. She has a little bit of nausea. She denies any pain. OBJECTIVE: Vital Signs: Afebrile vital signs stable. Extremities: Examination of left lower extremity shows surgical dressing to be clean, dry, and intact. Thigh and calf were soft and compressible. Her spinal was wearing off, so sensation is still decreased globally in the leg, however she states it is returning in her foot. Motor is intact in EHL, tibialis anterior, gastrocsoleus complex. Leg lengths are clinically equal. ASSESSMENT: A 78-year-old female status post left hip hemiarthroplasty. PLAN: 1. Patient to be weightbearing as tolerated, left lower extremity. Physical therapy to mobilize. Anterior hip precautions. 2. Abduction pillow between the legs while sleeping to prevent her from placing her hip in a dangerous position. 3. Ice p.r.n. to the left lower extremity. 4. Lovenox DVT prophylaxis. 5. 24 hours of IV Ancef for perioperative antibiotics. 6. Appreciate hospitalist recommendations. 7. Disposition: The patient will ambulate with physical therapy and will see how she does with this. 8. Plan will likely be discharge to inpatient rehab facility versus home with home health pending PT evaluation.
[2019-02-14] MEDS: CELEBREX PO SCH (11:39)
[2019-02-14] MEDS: COLACE PO SCH ×2 (11:40→20:36)
[2019-02-14] MEDS: LYRICA PO SCH ×2 (11:40→20:37)
[2019-02-14] MEDS: NS 1,000 ML IV SCH ×2 (11:57→17:10)
[2019-02-14] MEDS: PROTONIX IV SCH (11:57)
[2019-02-15] MEDS: ULTRAM PO SCH ×4 (01:20→18:22)
[2019-02-15] MEDS: NS 1,000 ML IV SCH ×4 (01:21→20:10)
--- NOTE | 2019-02-15 03:46 | ORTHOPAEDICS PROGRESS NOTE ---
DATE: 02/14/2019 SUBJECTIVE: Ms. Grove sitting up on bedside chair today. She is ready get her catheter out. She has been up walking, is actually feeling really well. She is not really complaining of any pain this morning. OBJECTIVE: Left lower extremity exam, her incision is healing well. There is no erythema or drainage around there. She has some ecchymoses around that area. She has good dorsiflexion plantar flexion of the foot. Good sensation to light touch to the toes. ASSESSMENT: Status post left hip hemiarthroplasty. PLAN: Ms Grove is doing fantastic. We will try to get her catheter out today. She is weight bear as tolerated left lower extremity. Therapy will continue to work with her and we will get licensed master social worker involved looking for discharge planning on Saturday. cc: Arthur Reese MD
--- NOTE | 2019-02-15 05:08 | PROGRESS NOTE ---
DATE: 02/14/2019 SUBJECTIVE: This morning Ms. Grove referred to be feeling sick. I was there when she was eating her breakfast. Apparently, she said the food keeps talking almost in the stomach. She was pointing to the lower part of the esophagus. She says she has had this before and she even had to have her esophagus stretched by Dr. Palma. OBJECTIVELY: Vital signs: Blood pressure is 113/41, pulse of 72, respirations 16, temperature 98.6 degrees. General: Ms Grove is a 78-year-old female, she is in bed, no distress. HEENT: Mucosa is pink and moist. Anicteric. Acyanotic. Neck: Supple. Chest: Clear to auscultation. No crepitations. No rhonchi. Cardiovascular: Regular rate and rhythm. Gastrointestinal: Abdomen is soft, nontender. Bowel sounds were present. Extremities: No pedal edema. The left hip has dressing over laterally over the surgical incision. IS MANAGER: Patient is awake, alert, and oriented. LABORATORY DATA: Hemoglobin was 9.7 this morning. Chemistry was all within normal range. ASSESSMENT: 1. Status post mechanical fall resulting in a left femoral neck fracture. Patient underwent a left hip hemiarthroplasty yesterday. Today is day 1 postop. 2. Dysphagia. The patient feels food is staying longer in the distal esophagus. This morning she was obviously seen to be in some discomfort, vomiting sometimes trying to get her food out. We will get GI to evaluate her. We have also started Ms. Grove on a proton pump inhibitor. We will discontinue her Celebrex. 3. Hypertension. Controlled. 4. Dementia. The patient is stable. 5. Diabetes mellitus. Controlled on pills. Also controlled on diet at home. Today we are going to discontinue the Aguirre catheter. We will consult GI and we will continue with the PPI and encourage Ms. Grove to participate with physical therapy. cc: David Lewis MD
[2019-02-15 07:13] LABS: HEMATOCRIT 24.9 % (37.0-47.0)
--- NOTE | 2019-02-15 07:30 | GASTROENTEROLOGY CONSULTATION ---
DATE: 02/14/2019 REASON FOR CONSULTATION: Dysphagia, history of esophageal dilation in the past. HISTORY OF PRESENT ILLNESS: This is a 78-year-old, female who had a recent fall at home and sustained a fracture to her left femoral neck. She had surgery on 02/13/2019, left hip hemiarthroplasty, by Dr. Diaz. Apparently, the patient had some trouble swallowing her food. We are asked to see her for evaluation. Currently, patient was eating her lunch at the time of my visit. She had some soup that she was eating. She states symptoms seemed to have improved how where, so far, she is tolerating her food. She does report having a history of a hiatal hernia with a Paulo fundoplication by Dr. Lo in the past. She also reported having an EGD by Dr. Burton. She is not sure of the exact timeline but probably over 5 years ago, she had esophageal dilation. She states she has not been taking any antireflux medications at home. As noted, currently, she states her dysphagia has improved. PAST MEDICAL HISTORY: Hypertension, dementia, hypoglycemia, hyperlipidemia, history of heart palpitations. PAST SURGICAL HISTORY: Recent surgery on 02/13/2019, left hip hemiarthroplasty. Further surgeries: section, hysterectomy, tubal ligation, appendectomy, hernia repair with mesh, and hiatal hernia repair. ALLERGIES: Latex and morphine. HOME MEDICATIONS: Aricept 23 mg every night, lisinopril 2.5 mg at night, montelukast 10 mg daily as needed, ranolazine 1000 mg daily, simvastatin 20 mg every night. SOCIAL HISTORY: She is . No alcohol or tobacco use. REVIEW OF SYSTEMS: Per history of present illness. PHYSICAL EXAMINATION: Vital Signs: Temperature 98.6 degrees, pulse 71, respirations 16, blood pressure 101/44. General: The patient is awake and alert. She has family at the bedside. At the time of my visit, she was eating lunch. She had some soup and a brownie on her tray. She states she is tolerating that well so far. Respiratory: Lung sounds essentially clear. Cardiovascular: Regular rate and rhythm. Abdomen: Soft, nontender. Positive bowel sounds. She has immobilizer to the left hip from recent surgery. LABORATORY DATA: Hematology: WBC 5.40, hemoglobin 9.7, hematocrit 30.1, MCV 86.5. Chemistry: Sodium 140, potassium 3.6, chloride 104, CO2 of 23, BUN 9, creatinine 0.6, glucose 100. ASSESSMENT AND PLAN: 1. Recent fall with left femoral neck fracture, status post surgery. 2. Dysphagia. Patient reports a history of esophageal dilation in the past. Would recommend a proton pump inhibitor. Patient had not been on proton pump inhibitor at home prior to admission. Recommend to eat small bites, chew food well, drink between bites. Depending on her progress, further plans will be made. At this point, would not recommend endoscopy unless she is having further trouble with dysphagia. We will continue to follow during her hospital course and further plans will be made as needed. I have discussed this case with Dr. Palma. Dictated by SONDRA Das for Sukumar Palma MD cc: SONDRA Gibson MD
[2019-02-15] MEDS: SODIUM CHLORIDE 0.9% INJ SCH (10:34)
[2019-02-15] MEDS: PROTONIX IV SCH (10:34)
[2019-02-15] MEDS: LOVENOX SUBQ SCH (10:34)
[2019-02-15] MEDS: LYRICA PO SCH ×3 (10:34→20:10)
[2019-02-15] MEDS: COLACE PO SCH ×2 (10:34→20:09)
[2019-02-15] MEDS: PERIDEX MT SCH ×2 (10:34→20:09)
[2019-02-15] MEDS ORDERED: CITRATE OF MAGNESIA PO ONE (14:35)
--- NOTE | 2019-02-15 18:05 | GASTROENTEROLOGY PROGRESS NOTE ---
DATE: 02/15/2019 SUBJECTIVE: Ms. Grove is doing well. We were consulted for the dysphagia, however she has been eating and drinking very well. She is taking a time to swallow and she is eating smaller bites. She is also washing her food down a bit with a sip of water in between her bites. She has not had any problems. She has not had any episode of acute food impaction, nausea, or vomiting. She is currently on Prilosec. OBJECTIVE: Vital Signs: Temperature 99.7 degrees, pulse was 67 per minute, breathing air of 16, blood pressure 97/41. Abdomen: Full, soft, nontender. Bowel sounds are audible. Extremities: No pedal edema noted. LABORATORIES: Reviewed which showed hemoglobin of 10.0 and hematocrit was 24.9. IMPRESSION: 1. Dysphagia, most likely from peptic stricture. She has had esophagogastroduodenoscopy and esophageal dilation in the past done outside this hospital. I do not have the report with me. At this point, she has been started on a proton pump inhibitor and she is trying to eat slowly, taking small bites which has worked for her. At this point, no new suggestions. I do not think she needs to have an esophagogastroduodenoscopy with esophageal dilation while she is in the hospital at this point. Recommended, however, to continue proton pump inhibitor and follow up in the office. She may need esophagogastroduodenoscopy and dilation and biopsy if needed. 2. Anemia most likely related to her fracture. I do not think she has had any gastrointestinal episode of bleeding. No new suggestion at this point. Continue to observe hemoglobin and hematocrit and transfuse if necessary for any evidence of active gastrointestinal bleed. cc: Sukumar Palma MD
--- NOTE | 2019-02-15 18:52 | PROGRESS NOTE ---
DATE: 02/15/2019 SUBJECTIVE: This morning Ms. Grove refers to be doing well. She said she has not had any bowel movement and she feels kind of nauseated, especially when she eat. She has been able to tolerate swallowing, but she feels the food is stopping right in her upper stomach. The patient has been evaluated by GI. OBJECTIVE: Vital signs: Blood pressure is 116/45, pulse of 76, respirations 16, temperature 99.6 degrees. General: Ms Grove is a 78-year-old female. She is in bed. No distress. HEENT: Mucosa is pink and moist. Anicteric. Acyanotic. No discharge. Chest: Clear to auscultation. No crepitations. No rhonchi. Cardiovascular: Regular rate and rhythm. No murmurs, no rubs, no gallops. Gastrointestinal: Abdomen is soft, minimally tender in the epigastrium. Bowel sounds present, slightly hypoactive. Extremities: No pedal edema. Left hip has dressing over the anterior upper hip from the surgery. Central Nervous System: Patient is awake, alert, and oriented. LABORATORY DATA: None for today. ASSESSMENT: 1. Status post mechanical fall resulting in a left femoral neck fracture. Patient is status post left hemiarthroplasty. Today is day #2 postop. 2. Dysphagia with a background history of esophageal stricture, status post dilation in the past. The patient seems to be okay. She told me she has been able to swallow some today. 3. Constipation Ms. Grove has not had any bowel movement since she got admitted. We are going to start her on bowel regimen. 4. Hypertension, controlled. 5. Dementia. 6. Diabetes mellitus, controlled on diet. cc: David Lewis MD
[2019-02-16] MEDS: ULTRAM PO SCH ×2 (04:31→05:23)
[2019-02-16] MEDS: NS 1,000 ML IV SCH ×2 (04:32→10:22)
[2019-02-16 06:36] LABS: HEMATOCRIT 28.4 % (37.0-47.0); HEMOGLOBIN 9.1 g/dL (12.0-16.0); MCH 27.9 PG (27-31); MCV 87.1 FL (81-99); MPV 9.8 FL (7.4-10.4); RBC 3.26 XMIL (4.2-5.4); RDW 13.9 % (11.5-14.5); WBC 8.15 X1000 (4.8-10.8)
[2019-02-16] MEDS ORDERED: MIRALAX PO ONE (09:00)
[2019-02-16] MEDS: LYRICA PO SCH (10:12)
[2019-02-16] MEDS: COLACE PO SCH (10:21)
[2019-02-16] MEDS: SODIUM CHLORIDE 0.9% INJ SCH (10:21)
[2019-02-16] MEDS: PERIDEX MT SCH (10:21)
[2019-02-16] MEDS: PROTONIX IV SCH (10:21)
[2019-02-16] MEDS: LOVENOX SUBQ SCH (10:23)
[2019-02-16 12:20] VITALS: BP 124/48
--- NOTE | 2019-02-16 12:45 | DISCHARGE SUMMARY ---
ADMISSION DATE: 02/12/2019 DISCHARGE DATE: 02/16/2019 DISPOSITION: [facility]. FOLLOW-UP: Dr. iDaz. CONSULTATION DURING THIS ADMISSION: Orthopedics was consulted. Patient was seen by Dr. iDaz. INVASIVE PROCEDURES DONE DURING THIS ADMISSION: 1. Left hip hemiarthroplasty was done by Dr. Diaz on 02/13/2019. IMAGING STATUS OF SIGNIFICANCE: 1. Hip pelvic x-ray did show left femoral neck fracture. Shoulder x-ray showed no acute bony abnormality. 1. A chest x-ray showed no injury. 2. A CT scan of the head and cervical spine showed no evidence of acute intracranial pathology. No evidence of fracture or other definite acute C-spine injury. 3. A hip x-ray after the surgery did show bipolar hip prosthesis in the left and some postsurgical changes. ADMISSION DIAGNOSES: 1. Left femoral neck fracture. 2. Hypertension. 3. Dementia. 4. Dyslipidemia. DIAGNOSES AT THE TIME OF DISCHARGE: 1. Status post mechanical fall resulting into a left femoral neck fracture. The patient is status post left hemiarthroplasty; today is day 3. The patient has been evaluated by Orthopedics and Physical Therapy. She is going to be discharged to a rehab. 2. Dysphagia with background history of esophageal stricture, status post dilation in the past. The patient was evaluated by Gastroenterology during the hospital course. No need for intervention. 3. Constipation, improved. 4. Hypertension. 5. Dementia. 6. Diabetes mellitus controlled on diet. 7. History of stable coronary artery disease on ranolazine. DISCHARGE MEDICATIONS: 1. Lisinopril 2.5 p.o. daily. 2. Montelukast 10 mg p.o. daily p.r.n. 3. Ranolazine 1000 mg p.o. daily. 4. Donepezil 23 mg p.o. at bedtime. 5. Simvastatin 20 mg p.o. at bedtime. 6. Zolpidem 5 mg p.o. at bedtime p.r.n. 7. Colace 100 mg b.i.d. 8. Lyrica 75 mg b.i.d. 9. Tylenol. 10. Oxycodone 5 mg p.o. q. 3 hours, 20 pills. 11. Xarelto 10 mg p.o. daily for 35 days for hip surgery deep vein thrombosis prophylaxis. 12. Citrate of magnesia p.r.n. for constipation. Patient was asymptomatic during the hospital course. PRESENTING COMPLAINT: Left hip pain. HISTORY OF PRESENTING COMPLAINT: Ms. Grove is a 78-year-old female, who is known to have hypertension, dementia, dyslipidemia, came to the emergency department after she fell about a day prior to presentation. She went to see her primary care, who asked her to come to the ER for an MRI. Upon presenting to the emergency room, the initial workup did reveal a left femoral neck fracture. She was subsequently admitted for further care. HOSPITAL COURSE: Ms. Grove was admitted to the surgical floor, was evaluated by Orthopedics. A decision was made to do an intervention. She was perioperatively evaluated and recommended to undergo surgery. Ms. Grove successfully underwent left hip hemiarthroplasty with Dr. Diaz. Postoperatively, she was evaluated by physical therapy on multiple occasions. On the , she was able to do 30 feet with minimum assist with front wheel walker. During the hospital course, Ms. Grove also did complain of some mild dysphagia. She was evaluated by Dr. Palma. She does have a history of esophageal stricture status post dilation in the past. However, Dr. Palma did not think that she needed any intervention at this point. She was able to tolerate soft diet during the hospital course. Ms Grove also did complain of some nauseation and constipation. She was started on some bowel regimen. She was able to move her bowels multiple times between yesterday and today. This morning, she refers to be feeling a lot better. She denies any new complaints. She has been up and sitting at the edge of the bed. We think she is fairly stable to be discharged to rehab. Currently her blood pressure is 116/46, pulse of 67, respirations 16, temperature 98.9 degrees. Physical exam is fairly unremarkable, except for the postsurgical changes on the left hip. Ms. Grove is therefore being discharged to [facility] in stable condition. All the discharge instructions have been discussed with her and she voiced understanding. TIME SPENT FOR DISCHARGE: 35 minutes. cc: MD Arthur Vides MD Christophe D. Coccia
== END 2019-02-16 14:01 | DRG 470 ==
LOC: ED 10:40 → 4N 15:01
PROVIDERS: ATTEND Internal Medicine